=== PATIENT | female | born 1995 | race Caucasian/White ===

== ENCOUNTER 2017-08-14 11:50 | Emergency (ER) | payer OTHER ==
[~2017-08-14] VITALS: Ht 157.5 cm; Wt 63.6 kg
[2017-08-14 11:53] VITALS: BP 124/64; TEMP 99.4
[2017-08-14] MEDS ORDERED: AMOXICILLIN 25250 MG PO (12:10)
[2017-08-14 13:14] LABS: BASO # 0.1 (0.0-0.2); BASO % 0.8 % (0.0-2.0); EOS # 0.1 (0.0-0.7); EOS % 1.1 % (0-4.0); GRAN # 4.1 (1.4-6.5); GRAN % 57.1 % (42.2-75.2); LYMPH # 2.5 (1.2-3.4); LYMPH % 34.1 % (20.0-51.0); MEAN CELL VOLUME 92 fl (80.0-100.0); MEAN CORPUSCULAR HGB CONC 34 g/dl (33.0-37.0); MEAN PLATELET VOLUME 9.9 fl (7.4-10.4); MONO # 0.5 (0.1-0.6); MONO % 6.8 % (1.7-9.3); PLATELET COUNT 212 K/mm3 (130-400); RED BLOOD COUNT 3.55 M/mm3 (4.10-5.30); WHITE BLOOD COUNT 7.2 K/mm3 (4.8-10.8)
[2017-08-14 13:17] LABS: HEMATOCRIT 32.6 % (37.0-47.0); MEAN CORPUSCULAR HEMOGLOBIN 31 pg (27.0-31.0)
[2017-08-14 13:39] LABS: ADJUSTED CALCIUM 9.2 mg/dL (8.4-10.2); ALBUMIN 4.2 gm/dL (3.5-5.0); BILIRUBIN,TOTAL 0.4 mg/dL (0.0-1.0); CALCIUM 9.4 mg/dL (8.4-10.2); CREATININE, serum 0.67 mg/dL (0.52-1.25); POTASSIUM 3.9 mmol/L (3.4-5.0); TOTAL PROTEIN 7.3 gm/dL (6.4-8.2)
[2017-08-14 14:32] VITALS: PULSE 68
== END 2017-08-14 14:33 | disposition home or self-care (01) ==
LOC: COL.ER 11:50
PROVIDERS: Nurse Practitioner
DX: O20.0 Threatened abortion (principal); Z3A.00 Weeks of gestation of pregnancy not specified

== ENCOUNTER 2018-06-18 06:51 | Inpatient (IN) | payer OTHER ==
[~2018-06-18] VITALS: Ht 154.9 cm; Wt 72.7 kg
[~2018-06-18 06:51] MED LIST: AMOXICILLIN 25250 MG PO
[2018-07-06] VITALS (32 sets, daily range): BP systolic 100–160; BP diastolic 55–92; PULSE 57–84; TEMP 97.7–98.3
[2018-07-06] MEDS ORDERED: PRENATAL MVI (07:57)
[2018-07-06] MEDS ORDERED: METHADOSE40 MG PO (07:57)
[2018-07-06] MEDS ORDERED: FOLIC ACID 11 MG/TA1 PO (07:58)
[2018-07-06] MEDS ORDERED: NATURAL IRON65 MG (07:58)
[2018-07-06 09:20] LABS: BASO # 0.1 (0.0-0.2); BASO % 0.7 % (0.0-2.0); EOS # 0.1 (0.0-0.7); EOS % 0.6 % (0-4.0); GRAN # 5.5 (1.4-6.5); GRAN % 63.5 % (42.2-75.2); HEMOGLOBIN 11.3 g/dl (12.5-16.0); LYMPH # 2.5 (1.2-3.4); LYMPH % 28.6 % (20.0-51.0); MEAN CELL VOLUME 91 fl (80.0-100.0); MEAN CORPUSCULAR HEMOGLOBIN 32 pg (27.0-31.0); MEAN CORPUSCULAR HGB CONC 35 g/dl (33.0-37.0); MONO # 0.6 (0.1-0.6); MONO % 6.3 % (1.7-9.3); PLATELET COUNT 159 K/mm3 (130-400); RED BLOOD COUNT 3.57 M/mm3 (4.10-5.30); REDCELL DISTRIBUTION WIDTH-CV 12.7 % (11.5-14.5)
[2018-07-06 09:31] LABS: HEMATOCRIT 32.3 % (37.0-47.0)
[2018-07-06 09:35] LABS: TRICYCLIC ANTIDEPRESS URINE NEGATIVE
[2018-07-07 07:31] VITALS: BP 118/73; PULSE 74
[2018-07-07] MEDS ORDERED: IBU600 MG PO (12:45)
[2018-07-07 16:30] VITALS: BP 112/71; PULSE 67; TEMP 98
[2018-07-07 20:30] VITALS: BP 127/77; PULSE 71; TEMP 98.6
[2018-07-08 06:45] VITALS: BP 113/67; PULSE 76; TEMP 98.2
== END 2018-07-08 14:45 | disposition home or self-care (01) | DRG 806 ==
LOC: LDR 07-06 07:39 → OB 07-06 07:39 → LDR 07-06 13:09 → OB 07-06 17:45 → LDRO 07-11 06:51 → EDSTATUS 07-11 08:14 → LDR 07-11 08:16
PROVIDERS: Obstetrics & Gynecology
PROC: 10E0XZZ Delivery of Products of Conception, External Approach (ICD-10-PCS; principal; 2018-07-06)
PROC: 3E033VJ Introduction of Other Hormone into Peripheral Vein, Percutaneous Approach (ICD-10-PCS; 2018-07-06)
PROC: 10907ZC Drainage of Amniotic Fluid, Therapeutic from Products of Conception, Via Natural or Artificial Opening (ICD-10-PCS; 2018-07-06)
DX: O99.324 Drug use complicating childbirth (principal); F15.20 Other stimulant dependence, uncomplicated; Z37.0 Single live birth; Z3A.39 39 weeks gestation of pregnancy; G25.81 Restless legs syndrome; O99.02 Anemia complicating childbirth; O99.344 Other mental disorders complicating childbirth; F41.8 Other specified anxiety disorders
CPT/HCPCS: J2590; J2795; J7120